=== PATIENT | male | born 1955 | race Caucasian/White ===

== ENCOUNTER → 2017-11-23 09:55 | Outpatient (CLI) | payer SELFPAY ==
[2017-11-23 12:53] LABS: Absolute Lymphocyte Count 1.12 X10^3/ul (0.83-4.51); Absolute Neutrophil Count 2.1 X10^3/uL (2.0-7.7); Basophil# 0.02 X10^3/uL; Basophil% 0.5 % (0-1); Eosinophil# 0.15 X10^3/uL; Eosinophils% 3.9 % (0-5); Hematocrit 46.6 % (40-54); Hemoglobin 15.8 g/dl (13.0-16.5); Lymphocyte # 1.12 X10^3/ul (4.0); Mean Corp Hgb Conc 33.9 g/gl (32-36); Mean Corpuscular Hgb 30.8 pg (27.0-32.0); Mean Corpuscular Volume 90.8 fL (80-94); Mean Platelet Vol. 8.9 fl (6.2-12.0); Monocyte# 0.45 X10^3/uL; Monocyte% 11.7 % (0-10); Neutrophil # 2.11 X10^3/uL (2.7-7.7); Neutrophil % 54.6 % (47-70); Platelet Count 146 K/mm3 (150-450); RBC Distribution Width CV 13.8 % (11.6-14.6); Red Blood Count 5.13 M/mm3 (4.6-6.2); White Blood Count 3.9 K/mm3 (4.4-11.0)
[2017-11-23 12:59] LABS: POSITIVE COUNT NO; POSITIVE DIFFERENTIAL NO; POSITIVE MORPHOLOGY NO
[2017-11-23 13:23] LABS: AST(SGOT) 25 U/L (15-37); Alanine Aminotransfer ALT/SGPT 30 U/L (16-61); Albumin, Serum 4.1 g/dL (3.2-5.0); Alkaline Phosphatase 61 U/L (45-117); Anion Gap 7 (5-15); BUN 12 mg/dL (7-18); BUN/Creat Ratio 13.2 RATIO (10-20); Calcium,Total 9.9 mg/dL (8.5-10.1); Chloride 104 mmol/L (98-107); Creatinine, Serum 0.91 mg/dL (0.70-1.30); EST Glomerular Filtration Rate 89 mL/min (>60); Est Glom Filt Rate - Afr Amer 108 mL/min (>60); Glucose 101 mg/dL (74-106); Potassium 4.4 mmol/L (3.5-5.1); Protein, Total 8.1 g/dL (6.4-8.2); Sodium Level 137 mmol/L (136-145); Thyroid Stim Hormone (TSH) 1.33 uIU/mL (0.358-3.74)
== END ==
PROVIDERS: Family Provider Family Medicine Geriatric Medicine; PCP Family Medicine Geriatric Medicine; Visit Provider Family Medicine Geriatric Medicine
DX: R53.83 Other fatigue (principal)
CPT/HCPCS: 36415; 80053; 84443; 85025

== ENCOUNTER → 2018-06-19 14:02 | Outpatient (CLI) | payer OTHER, SELFPAY ==
--- NOTE | 2018-06-19 15:35 | RAD_ITS ---
STUDY: X-RAY CHEST REASON FOR EXAM: Male, 63 years old. Shortness of of breath TECHNIQUE: PA and lateral views of the chest. COMPARISON: Over 2013 FINDINGS: There are scattered emphysematous blebs. There is no demonstrated pleural abnormality. Normal size heart. There is bulbous enlargement of the left hilum which on view is masslike in the lingula, possibly measuring up to 5.1 x 3.1 cm... Normal visualized pulmonary arteries. Normal visualized aortic arch and descending thoracic aorta. There are diffuse degenerative changes of the visualized thoracic spine. Normal visualized ribs, clavicles, and shoulders. There is no demonstrated abnormality of the visualized soft tissue structures of the upper abdomen. RAD/Chest PA and Lateral IMPRESSION: Left perihilar mass that may measure up to 5.1 x 3.1 cm projected over the left hilum. Suspicious for neoplasm versus infiltrate. Recommend follow up CT scan of the chest. Pulmonary emphysema. N.B. : The above information has been verbally conveyed by Naye Charlton MD to Dr. Ashok Mcnair MD, on 06/19/2018 16:31:48 (ET). Electronically Signed: Naye Charlton MD at 16:18 EST Tel , Service support ,
[2018-06-19 17:02] LABS: Absolute Lymphocyte Count 1.13 X10^3/ul (0.83-4.51); Absolute Neutrophil Count 3.1 X10^3/uL (2.0-7.7); Basophil# 0.03 X10^3/uL; Basophil% 0.6 % (0-1); Eosinophils% 2.1 % (0-5); Hemoglobin 15.5 g/dl (13.0-16.5); Lymphocyte # 1.13 X10^3/ul (4.0); Lymphocyte % 23.5 % (19-41); Mean Corp Hgb Conc 33.7 g/gl (32-36); Mean Corpuscular Hgb 30.8 pg (27.0-32.0); Mean Corpuscular Volume 91.5 fL (80-94); Mean Platelet Vol. 9.3 fl (6.2-12.0); Monocyte# 0.42 X10^3/uL; Monocyte% 8.8 % (0-10); Neutrophil # 3.12 X10^3/uL (2.7-7.7); Platelet Count 151 K/mm3 (150-450); RBC Distribution Width CV 14.4 % (11.6-14.6); RBC Distribution Width SD 47.3 fl (35.1-43.9); Red Blood Count 5.03 M/mm3 (4.6-6.2); White Blood Count 4.8 K/mm3 (4.4-11.0)
[2018-06-19 17:08] LABS: POSITIVE COUNT NO; POSITIVE DIFFERENTIAL NO; POSITIVE MORPHOLOGY NO
[2018-06-19 17:09] LABS: AST(SGOT) 29 U/L (15-37); Alanine Aminotransfer ALT/SGPT 36 U/L (16-61); Albumin, Serum 3.8 g/dL (3.2-5.0); Alkaline Phosphatase 64 U/L (45-117); Anion Gap 11 (5-15); BUN 13 mg/dL (7-18); BUN/Creat Ratio 16.8 RATIO (10-20); Calcium,Total 9.5 mg/dL (8.5-10.1); Chloride 106 mmol/L (98-107); Creatinine, Serum 0.77 mg/dL (0.70-1.30); EST Glomerular Filtration Rate 107 mL/min (>60); Est Glom Filt Rate - Afr Amer 130 mL/min (>60); Globulin 3.7 g/dL (2.2-4.2); Glucose 116 mg/dL (74-106); Potassium 4.2 mmol/L (3.5-5.1); Protein, Total 7.5 g/dL (6.4-8.2); Sodium Level 142 mmol/L (136-145); Thyroid Stim Hormone (TSH) 1.37 uIU/mL (0.358-3.74)
[2018-06-21 07:43] LABS: Hep C Antibodies <0.1 s/co ratio (0.0-0.9)
--- OUTSIDE RECORDS SUMMARY | 2018-08-05 19:05 | XMS RPT_ITS ---
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 years old. Abnormal chest x-ray, lung nodule. RADIATION DOSAGE (If Supplied By Facility): CTDIvol = ( 14.91 ) mGy, DLP = ( 588.77 ) mGycm TECHNIQUE: Transaxial imaging was performed following intravenous administration of 100 ml of Isovue 300 contrast material. Individualized dose optimization techniques were used for this CT. COMPARISON: Low-dose screening chest CT March 21, 2015; PA and lateral chest x-ray June 19, 2018. FINDINGS: Centrilobular emphysematous changes and subpleural blebs again predominate in the upper lung zones. There is subsegmental atelectasis in the posterior left costophrenic sulcus, as well as in the anteromedial left upper lobe abutting the anterior left hilar mass described below. 5 mm calcified granuloma seen in the posterolateral inferior right lower lobe There is no demonstrated pleural abnormality. Normal heart and pericardium. There are calcifications of the coronary arteries. Lobulated 5.35 x 4.9 x 4.3 cm soft tissue mass consistent with malignancy and possible adjacent/inseparable adenopathy extends from the anterior left hilum to the aorticopulmonary window. There is mediastinal and subcarinal adenopathy. A mass of confluent nodes in the lower right paratracheal soft tissues measure 4.9 x 3.0 x 3.3 cm. Subcarinal mass/adenopathy measures 6.4 x 5.4 x 3.2 cm. There are enlarged left hilar lymph nodes as well. Normal enhanced pulmonary arteries. There is atherosclerotic calcification of the aortic arch and takeoff of the left subclavian artery. There are multi-level hypertrophic bridging or near bridging spondylotic degenerative changes of the thoracic spine. Degenerative arthrosis with periarticular ossifications also seen at the sternomanubrial articulation. There is 1 cm rounded fullness of the central left adrenal gland, difficult to further characterize. CT/Chest WITH Contrast IMPRESSION: 1. Lobulated 5.35 cm soft tissue mass consistent with malignancy with possible inseparable adjacent adenopathy extends from the anterior left hilum to the aorticopulmonary window. There is additional mediastinal/subcarinal and left hilar adenopathy. 2. 1 cm rounded fullness of the central left adrenal gland. This is difficult to further characterize, and one might consider PET/CT for more complete evaluation of possible metastatic disease. 3. Centrilobular emphysematous changes and subpleural blebs predominate in the upper lung zones, unchanged. There is minor left base subsegmental atelectasis. Stable calcified granuloma in the posterolateral right lung base. 4. Atherosclerotic calcifications of the coronary arteries and thoracic aortic arch. Electronically Signed: Moses Marcano MD at 15:31 EST , Service support , CC: Eliana Schneider MD Code Number Stamper: Signed SR-CHEST WITH Observed: 06/25/2018 Status: F Source: [place] CONTRAST IMPORT 12:00 AM [facility] REPOSITORY Images were obtained outside of [facility] [id number] CHEST PA AND LATERAL Observed: 06/19/2018 Status: F Source: [place] 3:35 PM [facility] REPOSITORY [facility] Imaging Services [address] [place] [address] Chest PA and Lateral MR#: [id number] Acct: [id number] Name: DARRION CLINE Rep #: [id number] : 1955 M 63 From: Naye Charlton MD PCP: Eliana Schneider MD, Chi Status: REG CLI Study: Chest PA and Lateral Date of Exam: 06/19/18 Exam# [id number] Ordering Dr: Eliana Schneider MD ADDENDUM by Naye Charlton M.D. on 06/19/18 at 1632 ADDENDUM This is an addendum to correct a voice recognition error: The comparison study is April 25, 2014. Electronically Signed: Naye Charlton MD at 16:32 EST Tel , Service support , N.B. : The above information has been verbally conveyed by Naye Charlton MD to Dr. Ashok Schneider MD, on 06/19/2018 16:31:48 (ET). 06/19/18 1632 Date cc: Eliana Schneider MD * Signed ADDENDUM by Naye Charlton M.D. on 06/19/18 at 1632 RAD/Chest PA and Lateral 06/19/18 1639 Date cc: Eliana Schneider MD * Signed STUDY: X-RAY CHEST REASON FOR EXAM: Male, 63 years old. Shortness of of breath TECHNIQUE: PA and lateral views of the chest. COMPARISON: Over 2013 FINDINGS: There are scattered emphysematous blebs. There is no demonstrated pleural abnormality. Normal size heart. There is bulbous enlargement of the left hilum which on view is masslike in the lingula, possibly measuring up to 5.1 x 3.1 cm... Normal visualized pulmonary arteries. Normal visualized aortic arch and descending thoracic aorta. There are diffuse degenerative changes of the visualized thoracic spine. Normal visualized ribs, clavicles, and shoulders. There is no demonstrated abnormality of the visualized soft tissue structures of the upper abdomen. RAD/Chest PA and Lateral IMPRESSION: Left perihilar mass that may measure up to 5.1 x 3.1 cm projected over the left hilum. Suspicious for neoplasm versus infiltrate. Recommend follow up CT scan of the chest. Pulmonary emphysema. N.B. : The above information has been verbally conveyed by Naye Charlton MD to Dr. Ashok Schneider MD, on 06/19/2018 16:31:48 (ET). Electronically Signed: Naye Charlton MD at 16:18 EST Tel , Service support , CC: Eliana Schneider MD Code Number Stamper: Signed COMPREHENSIVE METABOLIC Collected: 06/19/2018 Status: F Source: [place] PROFIL 2:07 PM [facility] REPOSITORY TYPE CODE TESTS RESULT OUT OF RANGE REFERENCE UNITS LAB L501.0100 74-106 mg/dL High GLU 116 Result Comment: Fasting Glucose result from 100 to 125 mg/dL suggests IMPAIRED HOMEOSTASIS per A.D.A. criteria. Please note revised GLUCOSE reference range effective 2017. LAB L501.1000 7-18 mg/dL Normal BUN 13 LAB L501.1100 0.70-1.30 mg/dL Normal CREAT,SERUM 0.77 Result Comment: The validity of the calculated GFR AND GFRAA in patients over 70 years has not been determined. Clinical correlation is essential. LAB L501.1110 >60 mL/min Normal EST GFR 107 Result Comment: Non- GFR Calc LAB L501.1115 >60 mL/min Normal EST GFR - AA 130 Result Comment: GFR Calc LAB L501.1300 10-20 RATIO Normal BUN/CRE 16.8 LAB L501.1500 6.4-8.2 g/dL T Normal PROT 7.5 LAB L501.1800 3.2-5.0 g/dL Normal ALB 3.8 LAB L501.1950 2.2-4.2 g/dL Normal GLOB 3.7 LAB L501.2000 0.9-2.4 RATIO Normal A/G 1.0 LAB L501.2200 8.5-10.1 mg/dL CA Normal 9.5 LAB L501.4100 15-37 U/L Normal AST 29 LAB L501.4305 45-117 U/L Normal ALK P 64 LAB L501.4405 16-61 U/L Normal ALT 36 LAB L501.4600 0.20-1.00 mg/dL T Normal BILI 0.80 LAB L501.5300 136-145 mmol/L NA Normal 142 LAB L501.5600 3.5-5.1 mmol/L K Normal 4.2 LAB L501.5900 98-107 mmol/L CL Normal 106 LAB L501.6100 21.0-32.0 mmol/L Normal CO2 25.0 LAB L501.6200 5-15 Normal GAP 11 Performed By: #### L500.4050, L501.9520, L501.9910 #### [facility] [address] [place], [address] THYROID STIM HORMONE Collected: 06/19/2018 Status: F Source: [place] (TSH) 2:07 PM [facility] REPOSITORY TYPE CODE TESTS RESULT OUT OF RANGE REFERENCE UNITS LAB L501.9520 0.358-3.74 uIU/mL Normal TSH 1.37 Performed By: #### L500.4050, L501.9520, L501.9910 #### [facility] [address] [place], [address] PSA,TOTAL - ANNUAL Collected: 06/19/2018 Status: F Source: [place] SCREEN 2:07 PM [facility] REPOSITORY TYPE CODE TESTS RESULT OUT OF RANGE REFERENCE UNITS LAB L501.9910 0.00-4.00 ng/mL Normal PSA,TOT 0.40 SCREEN Result Comment: This test was performed using the TPSA assay method for the [employer] chemistry system. Values obtained with different assay methods cannot be used interchangably. When changing PSA assays in the course of monitoring a patient, additional sequential testing should be carried out to confirm baseline values. Performed By: #### L500.4050, L501.9520, L501.9910 #### [facility] [address] [place], [address] CBC W/DIFF, AUTOMATED Collected: 06/19/2018 Status: F Source: [place] 2:07 PM [facility] REPOSITORY TYPE CODE TESTS RESULT OUT OF RANGE REFERENCE UNITS LAB L100.1000 4.4-11.0 K/mm3 Normal WBC 4.8 LAB L100.1200 4.6-6.2 M/mm3 Normal RBC 5.03 LAB L100.1300 13.0-16.5 g/dl Normal HGB 15.5 LAB L100.1400 40-54 % Normal HCT 46.0 LAB L100.1500 80-94 fL Normal MCV 91.5 LAB L100.1600 27.0-32.0 pg Normal MCH 30.8 LAB L100.1700 32-36 g/gl Normal MCHC 33.7 LAB L100.1810 11.6-14.6 % Normal RDW CV 14.4 LAB L100.1820 35.1-43.9 fl High RDW SD 47.3 LAB L100.1900 150-450 K/mm3 Normal PLT 151 LAB L100.2000 6.2-12.0 fl Normal MPV 9.3 LAB L100.2100 47-70 % Normal NEUT% 65.0 LAB L100.2200 19-41 % Normal LY% 23.5 LAB L100.2300 0-10 % Normal MONO% 8.8 LAB L100.2400 0-5 % Normal EO% 2.1 LAB L100.2500 0-1 % Normal BASO% 0.6 LAB L100.2550 0.0-0.9 % Normal IM GRAN % 0.000 Result Comment: IG% - Immature Granulocytes (promyelocytes, myelocytes and metamyelocytes) > 1% indicates that a LEFT SHIFT is Present. LAB L100.2620 2.0-7.7 X10 3/uL Normal Absolute Neut 3.1 LAB L100.2720 0.83-4.51 X10 3/ul Normal Absolute Lymph 1.13 Performed By: #### L100.0100 #### [facility] [address] [place], [place], [address] HEPATITIS C ANTIBODIES Collected: 06/19/2018 Status: F Source: [place] 2:07 PM [facility] REPOSITORY TYPE CODE TESTS RESULT OUT OF RANGE REFERENCE UNITS LAB L3100.0650 0.0-0.9 s/co ratio Normal HEP C AB <0.1 Result Comment: Negative: < 0.8 Indeterminate: 0.8 - 0.9 Positive: > 0.9 The CDC recommends that a positive HCV antibody result be followed up with a HCV Nucleic Acid Amplification test (937103). Performed at: - [facility] [address], [place], [place] [id number] Braiding Operator: Adilson Osborne PhD, Phone: [phone] Performed By: #### [id number] #### [facility] (refer to report for specific site) refer to report for address and phone number CBC W/DIFF, AUTOMATED Collected: 11/23/2017 Status: F Source: [place] 11:02 AM [facility] REPOSITORY TYPE CODE TESTS RESULT OUT OF RANGE REFERENCE UNITS LAB L100.1000 4.4-11.0 K/mm3 Low WBC 3.9 LAB L100.1200 4.6-6.2 M/mm3 Normal RBC 5.13 LAB L100.1300 13.0-16.5 g/dl Normal HGB 15.8 LAB L100.1400 40-54 % Normal HCT 46.6 LAB L100.1500 80-94 fL Normal MCV 90.8 LAB L100.1600 27.0-32.0 pg Normal MCH 30.8 LAB L100.1700 32-36 g/gl Normal MCHC 33.9 LAB L100.1810 11.6-14.6 % Normal RDW CV 13.8 LAB L100.1820 35.1-43.9 fl High RDW SD 46.0 LAB L100.1900 150-450 K/mm3 Low PLT 146 LAB L100.2000 6.2-12.0 fl Normal MPV 8.9 LAB L100.2100 47-70 % Normal NEUT% 54.6 LAB L100.2200 19-41 % Normal LY% 29.0 LAB L100.2300 0-10 % High MONO% 11.7 LAB L100.2400 0-5 % Normal EO% 3.9 LAB L100.2500 0-1 % Normal BASO% 0.5 LAB L100.2550 0.0-0.9 % Normal IM GRAN % 0.300 Result Comment: IG% - Immature Granulocytes (promyelocytes, myelocytes and metamyelocytes) > 1% indicates that a LEFT SHIFT is Present. LAB L100.2620 2.0-7.7 X10 3/uL Normal Absolute Neut 2.1 LAB L100.2720 0.83-4.51 X10 3/ul Normal Absolute Lymph 1.12 Performed By: #### L100.0100 #### [facility] [address] [place], [place], [address] COMPREHENSIVE METABOLIC Collected: 11/23/2017 Status: F Source: [place] 11:02 AM [facility] REPOSITORY TYPE CODE TESTS RESULT OUT OF RANGE REFERENCE UNITS LAB L501.0100 74-106 mg/dL Normal GLU 101 Result Comment: Fasting Glucose result from 100 to 125 mg/dL suggests IMPAIRED HOMEOSTASIS per A.D.A. criteria. Please note revised GLUCOSE reference range effective 2017. LAB L501.1000 7-18 mg/dL Normal BUN 12 LAB L501.1100 0.70-1.30 mg/dL Normal CREAT,SERUM 0.91 Result Comment: The validity of the calculated GFR AND GFRAA in patients over 70 years has not been determined. Clinical correlation is essential. LAB L501.1110 >60 mL/min Normal EST GFR 89 Result Comment: Non- GFR Calc LAB L501.1115 >60 mL/min Normal EST GFR - AA 108 Result Comment: GFR Calc LAB L501.1300 10-20 RATIO Normal BUN/CRE 13.2 LAB L501.1500 6.4-8.2 g/dL T Normal PROT 8.1 LAB L501.1800 3.2-5.0 g/dL Normal ALB 4.1 LAB L501.1950 2.2-4.2 g/dL Normal GLOB 4.0 LAB L501.2000 0.9-2.4 RATIO Normal A/G 1.0 LAB L501.2200 8.5-10.1 mg/dL CA Normal 9.9 LAB L501.4100 15-37 U/L Normal AST 25 LAB L501.4305 45-117 U/L Normal ALK P 61 LAB L501.4405 16-61 U/L Normal ALT 30 LAB L501.4600 0.20-1.00 mg/dL T Normal BILI 0.90 LAB L501.5300 136-145 mmol/L NA Normal 137 LAB L501.5600 3.5-5.1 mmol/L K Normal 4.4 LAB L501.5900 98-107 mmol/L CL Normal 104 LAB L501.6100 21.0-32.0 mmol/L Normal CO2 26.0 LAB L501.6200 5-15 Normal GAP 7 Performed By: #### L500.4050, L501.9520 #### [facility] [address] [place], [address] THYROID STIM HORMONE Collected: 11/23/2017 Status: F Source: [place] (TSH) 11:02 AM [facility] REPOSITORY TYPE CODE TESTS RESULT OUT OF RANGE REFERENCE UNITS LAB L501.9520 0.358-3.74 uIU/mL Normal TSH 1.33 Performed By: #### L500.4050, L501.9520 #### [facility] [address] [place], [address] ALLERGIES ALLERGIES DATE TYPE / CODE NAME / CODE REACTION SEVERITY SOURCE Drug NO KNOWN [facility] Class/16790 ALLERGIES Main [place] 1003(SNOMED Repository CT) ENCOUNTERS ENCOUNTERS ADMIT/DISCHARGE ACCOUNT ADMITTING ENCOUNTER LOCATION SOURCE NUMBER CLASS 07/31/2018/07/31/[id number] Repository 07/27/2018 [id number] [facility] 07/27/2018/07/30/[id number] Repository 07/27/2018/07/27/19 [id number] [facility], [address] Repository 07/27/2018/07/27/19 [id number] [facility], [address] Repository 07/19/2018/07/19/[id number] Repository 07/19/2018/07/19/[id number] Repository 07/09/2018/07/13/19 [id number] Ambulatory [address] Repository 06/28/2018/07/04/[id number] Repository 06/25/2018 [id number] [facility] ing:CT Repository 06/19/2018 [id number] [facility] ing:RAD Repository 11/23/2017 [id number] [facility] ing:POLAB3 Repository PAYERS PAYERS ENCOUNTER GUARANTOR PAYER SUBSCRIBER SOURCE 06/25/2018 DARRION R Primary DARRION R [place] [id number] Insurance:MEDICAL SMETZERDOB: [id number] [address]Wzq: Number: Repository [id number] (HP) Date:0621-14-90TL [place] [id number]: 06/25/2018 Secondary DARRION R [place] Insurance:[facility] PACKAGE SMETZERDOB: [facility] Number: [id number] [id number] Repository Date:2018-06-20 06/25/2018 Tertiary NOT GIVENUNK [place] Insurance:SELF PAY [facility] Number: Effective Repository Date:2018-06-20 06/19/2018 DARRION R Primary DARRION R [place] [id number] Insurance:MEDICAL SMETZERDOB: [facility] [id number] [address]Gmw: Number: Repository [id number] (HP) Date:[place]60[place]26-[place] [phone]: 06/19/2018 Secondary NOT GIVENUNK [place] Insurance:SELF PAY [facility] Number: Effective Repository Date:2018-06-19 11/23/2017 Darrion R Primary NOT GIVENUNK [place] [id number] Insurance:SELF PAY [facility] [id number]: Number: Effective Repository Date:2017-11-23 (HP)
== END ==
LOC: POLAB3 14:05 → RAD 15:33
PROVIDERS: Family Provider Family Medicine Geriatric Medicine; PCP Family Medicine Geriatric Medicine; Referring Provider Family Medicine Geriatric Medicine; Visit Provider Family Medicine Geriatric Medicine
DX: R06.02 Shortness of breath (principal); R53.83 Other fatigue; Z12.5 Encounter for screening for malignant neoplasm of prostate; Z13.89 Encounter for screening for other disorder
CPT/HCPCS: 36415; 71046; 80053; 84153; 84443; 85025; 86803; G0103

== ENCOUNTER → 2018-06-25 14:29 | Outpatient (CLI) | payer OTHER, SELFPAY ==
--- NOTE | 2018-06-25 14:35 | CT_ITS ---
STUDY: CT CHEST/THORAX WITH CONTRAST REASON FOR EXAM: Male, 63 years old. Abnormal chest x-ray, lung nodule. RADIATION DOSAGE (If Supplied By Facility): CTDIvol = ( 14.91 ) mGy, DLP = ( 588.77 ) mGycm TECHNIQUE: Transaxial imaging was performed following intravenous administration of 100 ml of Isovue 300 contrast material. Individualized dose optimization techniques were used for this CT. COMPARISON: Low-dose screening chest CT March 21, 2015; PA and lateral chest x-ray June 19, 2018. FINDINGS: Centrilobular emphysematous changes and subpleural blebs again predominate in the upper lung zones. There is subsegmental atelectasis in the posterior left costophrenic sulcus, as well as in the anteromedial left upper lobe abutting the anterior left hilar mass described below. 5 mm calcified granuloma seen in the posterolateral inferior right lower lobe There is no demonstrated pleural abnormality. Normal heart and pericardium. There are calcifications of the coronary arteries. Lobulated 5.35 x 4.9 x 4.3 cm soft tissue mass consistent with malignancy and possible adjacent/inseparable adenopathy extends from the anterior left hilum to the aorticopulmonary window. There is mediastinal and subcarinal adenopathy. A mass of confluent nodes in the lower right paratracheal soft tissues measure 4.9 x 3.0 x 3.3 cm. Subcarinal mass/adenopathy measures 6.4 x 5.4 x 3.2 cm. There are enlarged left hilar lymph nodes as well. Normal enhanced pulmonary arteries. There is atherosclerotic calcification of the aortic arch and takeoff of the left subclavian artery. There are multi-level hypertrophic bridging or near bridging spondylotic degenerative changes of the thoracic spine. Degenerative arthrosis with periarticular ossifications also seen at the sternomanubrial articulation. There is 1 cm rounded fullness of the central left adrenal gland, difficult to further characterize. CT/Chest WITH Contrast IMPRESSION: 1. Lobulated 5.35 cm soft tissue mass consistent with malignancy with possible inseparable adjacent adenopathy extends from the anterior left hilum to the aorticopulmonary window. There is additional mediastinal/subcarinal and left hilar adenopathy. 2. 1 cm rounded fullness of the central left adrenal gland. This is difficult to further characterize, and one might consider PET/CT for more complete evaluation of possible metastatic disease. 3. Centrilobular emphysematous changes and subpleural blebs predominate in the upper lung zones, unchanged. There is minor left base subsegmental atelectasis. Stable calcified granuloma in the posterolateral right lung base. 4. Atherosclerotic calcifications of the coronary arteries and thoracic aortic arch. Electronically Signed: Moses Marcano MD at 15:31 EST , Service support ,
--- OUTSIDE RECORDS SUMMARY | 2018-09-27 07:04 | XMS RPT_ITS ---
:1955 Author Organization OHIP Care Team Providers Name Role Phone ALVIN PAYAN Attending Unavailable WYATT, ELIANA CHI Referring Unavailable MASCIALVIN Referring Unavailable MASCIALVIN Referring Unavailable MASCIALVIN Referring Unavailable MAZZONE, AMERICA Admitting Unavailable MAZZONE, AMERICA Attending Unavailable DOUG BELTRAN (PA-C) Referring Unavailable MAZZONE, AMERICA Admitting Unavailable MAZZONE, AMERICA Attending Unavailable MAZZONE, AMERICA Referring Unavailable MAZZONE, AMERICA Attending Unavailable WYATT, ELIANA CHI Referring Unavailable MAZZONE, AMERICA Admitting Unavailable MAZZONE, AMERICA Attending Unavailable MASCIALVIN Attending Unavailable MASCIALVIN Referring Unavailable Wyatt, Eliana [...] Active Other diseases of AMERICA VORA Active [facility] bronchus, not [place] elsewhere Repository classified / J98.09(ICD-10) 07/27/2018 Active Localized enlarged AMERICA VORA Active [facility] lymph nodes / [place] R59.0(ICD-10) Repository 07/19/2018 Active Other nonspecific NA Active [facility] abnormal finding [place] of lung field / Repository R91.8(ICD-10) 07/19/2018 Active Unknown / NA Active [facility] UNK(Unknown) [place] Repository 07/09/2018 Active Malignant neoplasm NA Active [facility] of unspecified [place] part of Repository unspecified bronchus or lung / C34.90(ICD-10) PROCEDURES PROCEDURES No Procedure Records FoundRESULTS RESULTS PROGRESS Observed: 07/31/2018 Status: COMPLETED Source: [place] 2:48 PM [facility] REPOSITORY HNO ID: [id number] Author: Alvin Payan Service: (none) Author Type: Physician Type: Progress Notes Filed: 07/31/2018 4:52 PM Note Text: Diagnosis: 1) Metastatic NSCLC. HPI: The patient is a 63-year-old male was a past medical history significant for hypertension. He quit smoking 8 years ago. He was in [place] when he began experiencing increasing dyspnea on exertion. He saw Dr. Schneider on his return from [place]. A chest x-ray was obtained on 06/19/2018. [...] No jaundice or rash. No petechiae. NEUROLOGIC: winder helper II-XII are grossly intact. No focal motor [...] DO CNOVSP Observed: 07/31/2018 Status: COMPLETED Source: [place] 2:30 PM [facility] REPOSITORY Visit (SP) Office ([place]) BRADDARRION CALERO ([id number]) 1955 M Date Time Provider Department 07/31/18 [...] smoking 8 years ago. He was in [place] when he began experiencing increasing dyspnea on exertion. He saw Dr. Schneider on his return from [place]. A chest x-ray was obtained on 06/19/2018. [...] No jaundice or rash. No petechiae. NEUROLOGIC: winder helper II-XII are grossly intact. No focal motor [...] Alvin Payan DO Referring Provider: ALVIN PAYAN [[id number]] Allergies As of Date: 07/31/2018 (No Known [...] ANES POST Observed: 07/27/2018 Status: COMPLETED Source: [place] 12:15 PM [facility] REPOSITORY HNO ID: [id number] Author: Yue Carias Service: Anesthesiology Author Type: [...] 27, 2018 TIME: 12:15 PM PAGER/CONTACT #: [phone] CYTOLOGY Observed: 07/27/2018 Status: F Source: [place] 10:57 AM [facility] MAIN [place] REPOSITORY Specimen originated from [facility] Specimen #: [id number] Submitting Physician: AMERICA VORA [...] discrete evaluation episode. Intra-procedural assessment performed at [facility], [facility] [place] [address] GROSS DESCRIPTION A: 30cc hazy light pink CytoLyt with particles and 4 smears (2 Diff Quik and 2 pap stained) B: 30cc cloudy pink CytoLyt with material and 2 smears (1 Diff Quik and 1 pap stained) STAINS A: BRONCHIAL,#22 EBUS,TBNA,4R FINE NEEDLE ASPIRATE (THINPREP, SMEARS AND CELL BLOCK) SMEARS RECEIVED x 4, THIN PREP Non-Crane Follower, CELL BLOCK, H&E, Initial B: BRONCHIAL,#22 EBUS,TBNA,STATION 7 FINE NEEDLE ASPIRATE (THINPREP, SMEARS AND CELL BLOCK) SMEARS RECEIVED x 2, THIN PREP Non-Crane Follower, CELL BLOCK, H&E, Initial Date of Report: 07/30/2018 Date of Procedure: 07/27/2018 Date of Receipt: 07/27/2018 Submitted by: AMERICA VORA M.D. ([id number]) Additional Physician(s): ALVIN PAYAN M.D. ([id number]) Location: PULMONARY MAIN Diagnostic interpretation performed at [facility], [address] [place] [address], [place] [address]. CYTOLOGY Observed: 07/27/2018 Status: F Source: [place] 10:57 AM [facility] REPOSITORY Specimen originated from [facility] Specimen #: [id number] Submitting Physician: AMERICA VORA [...] discrete evaluation episode. Intra-procedural assessment performed at [facility], [address] [place] [address]. [place] [address] GROSS DESCRIPTION A: 30cc hazy light pink CytoLyt with particles and 4 smears (2 Diff Quik and 2 pap stained) B: 30cc cloudy pink CytoLyt with material and 2 smears (1 Diff Quik and 1 pap stained) STAINS A: BRONCHIAL,#22 EBUS,TBNA,4R FINE NEEDLE ASPIRATE (THINPREP, SMEARS AND CELL BLOCK) SMEARS RECEIVED x 4, THIN PREP Non-Crane Follower, CELL BLOCK, H&E, Initial B: BRONCHIAL,#22 EBUS,TBNA,STATION 7 FINE NEEDLE ASPIRATE (THINPREP, SMEARS AND CELL BLOCK) SMEARS RECEIVED x 2, THIN PREP Non-Crane Follower, CELL BLOCK, H&E, Initial Date of Report: 07/30/2018 Date of Procedure: 07/27/2018 Date of Receipt: 07/27/2018 Submitted by: AMERICA VORA M.D. (A90) Additional Physician(s): ALVIN PAYAN M.D. ([id number]) Location: PULMONARY MAIN Diagnostic interpretation performed at [facility], [address] [place] [address], [place] [address]. SURGICAL PATHOLOGY Observed: 07/27/2018 Status: C Source: [place] 10:57 AM [facility] REPOSITORY ADDITIONAL PROCEDURES PRESENT Specimen originated from [facility] Specimen #: [id number] Submitting Physician: AMERICA VORA M.D. (A90) FINAL DIAGNOSIS #7 lymph node, core biopsy - Squamous cell carcinoma. CFF/db 07/31/2018 Elina Boone M.D. (Electronic Signature) SPECIMEN SUBMITTED A: 7 LYMPH NODE ADDITIONAL PROCEDURE(S) PD-L1 BY IMMUNOHISTOCHEMISTRY Date Ordered: 08/01/2018 Date Reported: 08/01/2018 Procedure Results and Interpretation PD-L1 Clone: 22C3 Tissue: Lymph node Block number: A1 Tumor Cells Positive: 1-2% expression Comment: N/A CFF/plfrancisco 08/01/2018 Laboratory Developed Test (LDT) Disclaimer: Positive and negative controls stain appropriately. Performance characteristics of immunohistochemical, immunofluorescent and chromogenic in-situ hybridization tests have been determined by [facility]'s [facility] [place] ([facility]) in a manner consistent with CLIA requirements. One or more of these tests have not been cleared or approved by the FDA. [facility] is regulated under CLIA as qualified to perform high-complexity testing. These tests are used for clinical purposes. They should not be regarded as investigational or for research. CLINICAL DATA ADENOPATHY CORE BX 7 PDL1 GROSS DESCRIPTION A. Received in formalin are multiple segments of cylindrical tissue aggregating to 2.7 x 1.0 x 0.1 cm, brown and of a soft and friable consistency. Totally submitted in formalin in one cassette. Gross examination performed at [facility], [address] [place] [address] 07/27/2018 9:29:51 PM Date of Report: 08/01/2018 Date of Procedure: 07/27/2018 Date of Receipt: 07/27/2018 Submitted by: AMERICA VORA M.D. (A90) Location: PULMONARY MAIN Diagnostic interpretation performed at [place] [address]. PROGRESS Observed: 07/27/2018 Status: COMPLETED Source: [place] 8:40 AM [facility] REPOSITORY HNO ID: [id number] Author: America Vora Service: (none) Author Type: [...] ?ms QTC Calculation(Bezet) : 474 ?ms P [place] : 67 ?degrees R [place] : -66 ?degrees T [place] : 3 ?degrees ? Test Reason : [...] Vora MD Date: 07/27/2018 Time: 10:06 AM CNALEXANDRO Observed: 07/27/2018 Status: COMPLETED Source: [place] 8:30 AM [facility] REPOSITORY Office Visit (PUBRON) DARRION CLINE ([id number]) 1955 M Date Time Provider Department 07/27/18 [...] ?ms QTC Calculation(Bezet) : 474 ?ms P [place] : 67 ?degrees R [place] : -66 ?degrees T [place] : 3 ?degrees ? Test Reason : [...] former smoker seen in consult from Dr. aPyan for EBUS guided diagnosis/staging of the mediastinum. [...] 10:06 AM Referring Provider: ELIANA SCHNEIDER CHI [[id number]] Allergies As of Date: 07/27/2018 (No Known [...] AND DIFFERENTIAL Collected: 07/27/2018 Status: F Source: [place] 7:33 AM [facility] REPOSITORY TYPE CODE TESTS RESULT OUT [...] k/uL Abs Lymph 1.25 LAB AMONO % Cherry% 11.3 LAB AAMONO <0.87 k/uL Abs Cherry 0.51 LAB AEOS % Eosin% 1.3 LAB AAEOS <0.46 k/uL Abs Eosin 0.06 LAB ABASO % Baso% 1.1 LAB AABASO <0.11 k/uL Abs Baso 0.05 LAB AUNRBC 0 /100 WBC NRBCs 0.0 LAB ABNRBC <0.01 k/uL Absolute nRBC <0.01 LAB DTYP DTYPE Auto Diff Performed By: #### CBCDIF, CMP #### [facility] [address] [place], [place] [address] COMP METABOLIC PANEL Collected: 07/27/2018 Status: F Source: [place] 7:33 AM [facility] MAIN CAMPUS REPOSITORY TYPE CODE TESTS RESULT OUT OF REFERENCE UNITS RANGE LAB TP 6.3-8.0 g/dL Protein, Total 7.2 LAB ALB 3.9-4.9 g/dL Albumin 4.5 LAB CA 8.5-10.2 mg/dL Calcium, Total 10.1 LAB TBIL 0.2-1.3 mg/dL Bilirubin, Total 1.0 LAB ALKP 38-113 U/L Alkaline Phosphatase 63 LAB AST 14-40 U/L AST 26 LAB GLU 74-99 mg/dL Glucose High 118 Result Comment: The [place] [employer] (ADA) provides guidance for cutoff [...] Standards of Medical Care in Diabetes 2016, [place] [employer]. Diabetes Care. 2016.39(Suppl 1). LAB [...] GFR. Performed By: #### CBCDIF, CMP #### [facility] [address] [place], [place] [address] ECG COMPLETE W Observed: 07/27/2018 Status: F Source: [place] INTERPRETATION 7:15 AM [facility] REPOSITORY NAME : DARRION CLINE PID : [id number] : 1955 Gender : Male Race : ORD : [id number] Procedure Date : Jul 27 2018 07:15:00 Edit Date : Jul 27 2018 08:11:35 Diagnosis:NORMAL SINUS RHYTHM COMPLETE RIGHT BUNDLE BRANCH BLOCK ABNORMAL ECG Confirmed by JEFFERY DOUGLAS M.D. ([id number]) on 07/27/2018 8:11:29 AM Ventricular Rate : 87 BPM Atrial Rate : 87 BPM P-R Interval : 152 ms QRS Duration : 142 ms Q-T Interval : 394 ms QTC Calculation(Bezet) : 474 ms P [place] : 67 degrees R [place] : -66 degrees T [place] : 3 degrees Test Reason : Location : 314 : J14 J1-4 Overread By : JEFFERY DOUGLAS M.D. Edited By : JEFFERY DOUGLAS M.D. Referred By : DOUG BELTRAN Acquired by : BHARGAV BIRD PT ED Observed: 07/20/2018 Status: COMPLETED Source: [place] 4:03 PM [facility] REPOSITORY HNO ID: [id number] Author: Thania Armenta (Rn) CARLOS Segura Service: [...] PET/CT SKULL-THIGH Observed: 07/19/2018 Status: F Source: [place] INIT 11:28 AM [facility] REPOSITORY * * *Final Report* * * DATE OF EXAM: Jul 19 2018 11:28AM [facility] 0060 - NM PET/CT SKULL-THIGH INIT / [...] * No suspicious FDG avid osseous lesion. Recreation Counselor: PSCB Transcribe Date/Time: Jul 19 2018 1:21P Dictated by : ZACARIAS ADLER MD This examination was interpreted and the report reviewed and electronically signed by: CORBIN SCHULTE MD on Jul 19 2018 4:08PM EST [id number] PROGRESS Observed: 07/19/2018 Status: COMPLETED Source: [place] 10:04 AM [facility] REPOSITORY HNO ID: [id number] Author: Jn Alas [facility] Service: (none) Author Type: (none) Type: Progress [...] 1000 PATIENT DISCHARGED TO: Ambulatory patient, left [place] department area. A Diagnostic radioactive procedure has taken place, with no further precautions necessary other than routine body substance precautions. More information regarding radiation safety can be found using this link: [email or web address] SIGNATURE: Jn Alas [facility] PATIENT NAME: Darrion Cline DATE: July 19, 2018 TIME: 10:04 AM PAGER/CONTACT #: MRI BRAIN WO/W Observed: 07/09/2018 Status: F Source: [place] IVCON 1:44 PM [facility] MAIN [place] REPOSITORY * * *Final Report* * * DATE OF EXAM: Jul 09 2018 1:44PM [facility] 0295 - MRI BRAIN WO/W IVCON / [...] indicate intracranial metastasis. Chronic changes as described. Recreation Counselor: NATHALIE Transcribe Date/Time: Jul 09 2018 2:39P Dictated by : MORIAH CRISTOBAL MD This examination was interpreted and the report reviewed and electronically signed by: MORIAH CRISTOBAL MD on Jul 09 2018 2:43PM EST [id number] PROGRESS Observed: 07/09/2018 Status: COMPLETED Source: [place] 1:30 PM [facility] REPOSITORY HNO ID: [id number] Author: Vani Pappas (Rt) Service: (none) Author Type: Industrial Twisting Machine Operator Type: Progress Notes Filed: 07/09/2018 1:30 PM [...] PM HOSP Observed: 07/01/2018 Status: COMPLETED Source: [place] 12:00 AM [facility] REPOSITORY Patient:Darrion Cline MRN: <[id number]> Height:5' 9(1.753 m) Weight:188 lb (85.276 kg) Outpatient Medications as of 07/27/18: rosuvastatin (CRESTOR) 40 mg tablet Omeprazole Magnesium (PRILOSEC OTC) 20 mg tablet LORazepam (ATIVAN) 1 mg tablet Admission/Clinic Administered Medications as of 07/27/18: NaCl 0.9% iv infusion [facility], left corner of the mouth [...] ?ms QTC Calculation(Bezet) : 474 ?ms P [place] : 67 ?degrees R [place] : -66 ?degrees T [place] : 3 ?degrees ? Test Reason : [...] July 27, 2018, 8:40 AM Progress Notes ([facility]): Alvin Payan, 07/20/2018 8:28 AM Signed Can let him [...] the bones, liver or other internal organs. Alvin Payan, DO Melani Lowery LPN, BETTY 07/20/2018 9:51 AM Signed Message left on voicemail to contact office.for results Melani Lowry JONAH LoweryRayna Interiano PSR 07/20/2018 9:58 AM Signed Patient called back. Relayed message from Dr. Payan. Patient verbalized understanding. Did not have any further questions. PROGRESS Observed: 06/29/2018 Status: COMPLETED Source: [place] 4:39 PM [facility]IN [place] REPOSITORY HNO ID: [id number] Author: Alvin Payan Service: (none) Author Type: [...] smoking 8 years ago. He was in [place] when he began experiencing increasing dyspnea on exertion. He saw Dr. Schneider on his return from [place]. A chest x-ray was obtained on 06/19/2018. [...] brain MRI. Plan: -Referral to bronchoscopy at [facility]. -PET scan and MR brain as soon as able. -Office visit afterwards to review results and developed treatment plan. Alvin Payan DO PROGRESS Observed: 06/29/2018 Status: COMPLETED Source: [place] 10:57 AM [facility] REPOSITORY HNO ID: [id number] Author: Doug Beltran Service: (none) Author Type: Physician Poultry Tender Type: Progress Notes Filed: 06/29/2018 11:04 AM Note Text: Bronchoscopy Request: Please schedule patient for the following: Cleared for scheduling JK 06/29/18. New Consultation Staging EBUS Diagnostic EBUS [...] on anticoagulants/anti-plt therapy? No Nursing Considerations: (ie: snf, TB, respiratory isolation, etc.) None Diagnosis/Reason for [...] CREAT CNOVSP Observed: 06/28/2018 Status: COMPLETED Source: [place] 11:10 AM [facility] REPOSITORY Visit (SP) Office ([place]) DARRION CLINE ([id number]) 1955 M Date Time Provider Department 06/28/18 11:10 AM ALVIN PAYAN During your visit today, we recorded the following information about you: Temperature Pulse Blood pressure Weight 97.8 degrees 90/minute 128/95 85.3 kg Height 1.753 m Alvin Paayn DO 07/02/2018 11:15 AM Signed Consult requested [...] smoking 8 years ago. He was in [place] when he began experiencing increasing dyspnea on exertion. He saw Dr. Schneider on his return from [place]. A chest x-ray was obtained on 06/19/2018. [...] brain MRI. Plan: -Referral to bronchoscopy at [facility]. -PET scan and MR brain as soon as able. -Office visit afterwards to review results and developed treatment plan. Alvin Payan DO Referring Provider: ELIANA SCHNEIDER CHI [[id number]] Allergies As of Date: 06/28/2018 (No Known Allergies) Date Reviewed: 06/28/2018 Reviewed by: Jane Jett - Fully Assessed Reason for Visit: New Patient Evaluation [154] Primary Visit Diagnosis:Lung mass [R91.8] Other Visit Diagnoses:Cancer of trachea, bronchus, and lung (HCC) [C33, C34.80] Lung nodules [R91.8] Order(s):NM PET/CT SKULL-THIGH [[id number]] Order #: [id number] FUTURE LORazepam (ATIVAN) 1 mg tabletTake 1 [...] Jane Jett MA 06/28/2018 11:07 AM >> KAY LOU JANE Cheryle Jun 28, 2018 11:07 AM Duplicate Problem List As Of Date 06/28/2018 Noted Resolved Mohs for BCC, left corner of the mouth 10-02-07 *INVALID FOR* Encounter Status:Closed by ALVIN PAYAN DO on 07/02/18 CHEST WITH CONTRAST Observed: 06/25/2018 Status: F Source: [place] 2:35 PM [facility] REPOSITORY [facility] Imaging Services [address] [place] [address] Chest WITH Contrast MR#: [id number] Acct: [id number] Name: DARRION CLINE Rep #: [id number] : 1955 M 63 From: Leonel Marcano MD PCP: Eliana Schneider MD, Chi Status: REG CLI Study: Chest WITH Contrast Date of Exam: 06/25/18 Exam# [id number] Ordering Dr: Eliana Schneider MD STUDY: CT [...] Service support , CC: Eliana Schneider MD Recreation Counselor: Signed SR-CHEST WITH Observed: 06/25/2018 Status: F Source: [place] CONTRAST [place] 12:00 AM [facility] REPOSITORY Images were obtained outside of [facility] [id number] CHEST PA AND LATERAL Observed: 06/19/2018 Status: F Source: [place] 3:35 PM [facility] REPOSITORY [facility] Imaging Services [address] [place] [address] Chest PA and Lateral MR#: [id number] Acct: [id number] Name: DARRION CLINE Rep #: [id number] : 1955 M 63 From: Naye Charlton MD PCP: Eliana Schneider MD, Chi Status: REG CLI Study: Chest PA and Lateral Date of Exam: 06/19/18 Exam# [id number] Ordering Dr: Eliana Schneider MD ADDENDUM by [...] Schneider MD, on 06/19/2018 16:31:48 (ET). 06/19/18 163 Date cc: Eliana Schneider MD * Signed [...] Service support , CC: Eliana Schneider MD Recreation Counselor: Signed COMPREHENSIVE METABOLIC Collected: 06/19/2018 Status: F Source: [place] 2:07 PM [facility] REPOSITORY TYPE CODE TESTS RESULT OUT OF [...] Performed By: #### L500.4050, L501.9520, L501.9910 #### [facility] [address] [facility] [place], [place], [id number] THYROID STIM HORMONE Collected: 06/19/2018 Status: F Source: [place] ([place]SH) 2:07 PM [facility] REPOSITORY TYPE CODE TESTS RESULT OUT OF RANGE REFERENCE UNITS LAB L501.9520 0.358-3.74 uIU/mL Normal TSH 1.37 Performed By: #### L500.4050, L501.9520, L501.9910 #### [facility] [address] [place], [place], [address] PSA,TOTAL - ANNUAL Collected: 06/19/2018 Status: F Source: [place] SCREEN 2:07 PM [facility] REPOSITORY TYPE CODE TESTS RESULT OUT OF RANGE REFERENCE UNITS LAB L501.9910 0.00-4.00 ng/mL Normal PSA,TOT 0.40 SCREEN Result Comment: This test was performed using the TPSA assay method for the iTwixie chemistry system. Values obtained with different assay methods cannot be used interchangably. When changing PSA assays in the course of monitoring a patient, additional sequential testing should be carried out to confirm baseline values. Performed By: #### L500.4050, L501.9520, L501.9910 #### [facility] [address] [place], [place], [id number] CBC W/DIFF, AUTOMATED Collected: 06/19/2018 Status: F Source: [place] 2:07 PM [facility] REPOSITORY TYPE CODE TESTS RESULT OUT OF [...] Lymph 1.13 Performed By: #### L100.0100 #### [facility] [address] [place], [address] HEPATITIS C ANTIBODIES Collected: 06/19/2018 Status: F Source: [place] 2:07 PM [facility] REPOSITORY TYPE CODE TESTS RESULT OUT OF RANGE REFERENCE UNITS LAB L3100.0650 0.0-0.9 s/co ratio Normal HEP C AB <0.1 Result Comment: Negative: < 0.8 Indeterminate: 0.8 - 0.9 Positive: > 0.9 The CDC recommends that a positive HCV antibody result be followed up with a HCV Nucleic Acid Amplification test (256272). Performed at: [facility] [id number] [place] Spreader: Adilson Osborne PhD, Phone: [phone] Performed By: #### L3100.0625 #### [facility] (refer to report for specific site) refer to report for address and phone number CBC W/DIFF, AUTOMATED Collected: 11/23/2017 Status: F Source: [place] 11:02 AM [facility] REPOSITORY TYPE CODE TESTS RESULT OUT OF [...] Lymph 1.12 Performed By: #### L100.0100 #### [facility] [address] [place], [address] COMPREHENSIVE METABOLIC Collected: 11/23/2017 Status: F Source: [facility] 11:02 AM [facility] REPOSITORY TYPE CODE TESTS RESULT OUT OF [...] 7 Performed By: #### L500.4050, L501.9520 #### [facility] [address] [place], [place], [address] THYROID STIM HORMONE Collected: 11/23/2017 Status: F Source: [place] ([place]SH) 11:02 AM [facility] REPOSITORY TYPE CODE TESTS RESULT OUT OF RANGE REFERENCE UNITS LAB L501.9520 0.358-3.74 uIU/mL Normal TSH 1.33 Performed By: #### L500.4050, L501.9520 #### [facility] [address] [place], [place], [address] ALLERGIES ALLERGIES DATE TYPE / CODE NAME / CODE REACTION SEVERITY SOURCE Drug NO KNOWN [facility] Class/54658 ALLERGIES [facility] 1003(SNOMED Repository CT) ENCOUNTERS ENCOUNTERS ADMIT/DISCHARGE ACCOUNT ADMITTING ENCOUNTER LOCATION SOURCE NUMBER CLASS 07/31/2018/08/01/19 [id number] Ambulatory [address] Repository 07/27/2018 [id number] MARISA, Ambulatory [facility] Repository 07/27/2018/07/30/19 [id number] Ambulatory [address] Repository 07/27/2018/07/27/19 [id number] ANDERZONE, Ambulatory [address] Repository 07/27/2018/07/27/19 [id number] MAZZONE, Ambulatory [place] [facility] Repository 07/19/2018/07/19/19 [id number] Ambulatory [address] Repository 07/19/2018/07/19/19 [id number] Ambulatory [address] Repository 07/09/2018/07/13/19 [id number] Ambulatory [address] Repository 06/28/2018/07/04/20 [id number] Ambulatory [address] Repository 06/25/2018 [id number] [facility] ing:CT Repository 06/19/2018 [id number] [facility] ing:RAD Repository 11/23/2017 [id number] [facility] ing:POLAB3 Repository PAYERS PAYERS ENCOUNTER GUARANTOR PAYER SUBSCRIBER SOURCE 06/25/2018 DARRION R Primary DARRION R [place] [id number] Insurance:MEDICAL SMETZERDOB: [id number] [address]Vxe: Number: Repository [id number] (HP) Date:[id number] [facility] [address] [place] [id number]: 06/25/2018 Secondary DARRION R [place] Insurance:[facility] PACKAGE SMETZERDOB: [facility] Number: [id number] Hospital [id number] Repository Date:2018-06-20 06/25/2018 Tertiary NOT GIVENUNK [place] Insurance:SELF PAY [facility] Number: Effective Repository Date:2018-06-20 06/19/2018 DARRION R Primary DARRION R [place] [id number] Insurance:MEDICAL SMETZERDOB: [facility] [id number] [address]Mht: Number: Repository [id number] (HP) Date:9601-08-[address], [place] [address]GZ: 06/19/2018 Secondary NOT GIVENUNK [place] Insurance:SELF PAY [facility] Number: Effective Repository Date:2018-06-19 11/23/2017 Darrion Lindsey Primary NOT GIVENUNK [place] [id number] Insurance:SELF PAY [facility] [address]Cre: Number: Effective Repository Date:2017-11-23 ()
== END ==
PROVIDERS: Family Provider Family Medicine Geriatric Medicine; PCP Family Medicine Geriatric Medicine; Referring Provider Family Medicine Geriatric Medicine; Visit Provider Family Medicine Geriatric Medicine
DX: R91.1 Solitary pulmonary nodule (principal)
CPT/HCPCS: 71260; Q9967

== ENCOUNTER → 2019-05-06 12:23 | Outpatient (CLI) | payer MEDICARE, BC, SELFPAY ==
[2019-05-06 14:06] LABS: Cholesterol 197 mg/dL (200); High Density Lipoprotein 46 mg/dL; Triglycerides 120 mg/dL; Very Low Density Lipoprotein 24 mg/dL (5-40)
[2019-05-08 12:22] LABS: Copper, Serum or Plasma 103 ug/dL (72-166); Zinc, Plasma or Serum 91 ug/dL (56-134)
== END ==
LOC: LAB.FUTURE 12:24 → LAB 12:30
PROVIDERS: Family Provider Family Medicine Geriatric Medicine; PCP Family Medicine Geriatric Medicine
DX: C34.90 Malignant neoplasm of unspecified part of unspecified bronchus or lung (principal); E78.5 Hyperlipidemia, unspecified
CPT/HCPCS: 36415; 80061; 82525; 84630

== ENCOUNTER 2020-11-09 05:57 | Day surgery (SDC) | payer MEDICARE, BC, SELFPAY ==
--- NOTE | 2020-11-04 13:25 | EKG12_ITS ---
Test Reason : PRE OP Blood Pressure : / mmHG Vent. Rate : 085 BPM Atrial Rate : 085 BPM P-R Int : 154 ms QRS Dur : 132 ms QT Int : 378 ms P-R-T Axes : 078 -71 037 degrees QTc Int : 449 ms Normal sinus rhythm Left axis deviation Right bundle branch block Abnormal ECG Confirmed by BALBINA JENKINS, PHILLY ([id number]), acquisition editor SHERIF CROOKS ([id number]) on 11/05/2020 9:18:18 AM Referred By: Anand Scruggs Confirmed By:PHILLY MORTENSEN MD
[2020-11-09 06:23] VITALS: BP 107/70; PULSE 90; RESP 14; TEMP 37.2; O2SAT 92; BMI 21.6
[2020-11-09] MEDS: Lactated Ringers 1,000 ML 100 ML IV (06:39)
--- NOTE | 2020-11-09 07:35 | PCM.DC ---
Discharge Instructions Outpatient Procedure Reason For Visit: DIRECT LARYNGOSCOPY WITH INJECTION Follow Up Care Test Results: Test results from this visit will be discussed in further detail at your follow-up appointment, if applicable. Discharge Plan Admission Attending Provider: Anand Scruggs Primary Care Provider: Jeffrey London Discharge Orders/Prescriptions Prescriptions: No Action ondansetron HCl 8 MG tablet 8 mg PO Q8H PRN PRN (Reason: Pain 1-10 Or Fever) RF: 0 acetaminophen 500 MG tablet 500 - 1,000 mg PO Q6H PRN PRN (Reason: Pain 1-10 Or Fever) RF: 0 afatinib 20 MG tablet 20 mg PO DAILY RF: 0 albuterol sulfate 1 INHALER inhaler 1 - 2 puff INHALATION Q6H PRN PRN (Reason: COPD) RF: 0 Referrals: Jeffrey London MD [Primary Care Provider] - Disposition Discharge Orders: Discharge Patient (Routine); Ordered 11/09/20 Ordered By: Dr. Anand Scruggs
--- NOTE | 2020-11-09 07:56 | OP.PCM_ITS ---
Report of Operation Date of Procedure: 11/09/20 Pre-Operative Diagnosis: left vocal cord paralysis Post-Operative Diagnosis: same Surgery/Procedure Performed:: Microdirect laryngoscopy with left vocal cord injection Type of Anesthesia: General Anesthesiologist: Ildefonso Tsang Estimated Blood Loss (mL): none Description of Procedure: The patient was taken to the OR on 11/09/20. He was placed in the supine position on the OR table. He was given sufficient general endotracheal anesthesia. The table was turned 90 degrees clockwise. He was draped steriley. A gum guard was placed on the upper dentition. A Dedo laryngoscope was placed and the larynx was exposed. The laryngoscope was then placed in suspension on the Moody stand. The operating microcsope was then broug ht into use. I inspected the larynx. I then identified the vocal process. The needle was inserted anteriorly and medially to the left vocal process. I then injected prolaryn plus (1 cc). This provided excellent medialization of the vocal cord. Excess was suctioned from the field. Hemostasis was ensured. The instrumentation was then removed. The patient was awoken and brought to the recovery room in stable condition. blood loss none. Sponge, needle and instrument count were correct at the end of the procedure.
[2020-11-09 08:04] VITALS: BP 102/68; BP 107/70; PULSE 76; RESP 16; TEMP 36.3; O2SAT 91
[2020-11-09 08:15] VITALS: BP 107/70; BP 98/64; PULSE 76; RESP 16; O2SAT 93
[2020-11-09 08:25] VITALS: BP 107/70; BP 93/64; PULSE 71; RESP 16; TEMP 36.5; O2SAT 93
[2020-11-09 08:54] VITALS: BP 106/70; BP 107/70; PULSE 68; RESP 16; TEMP 36.5; O2SAT 93
== END 2020-11-09 08:58 ==
LOC: SDC 05:57 → AC 05:58
PROVIDERS: PCP Family Medicine; Referring Provider Otolaryngology; Visit Provider Otolaryngology
PROC: 0CJS8ZZ Inspection of Larynx, Via Natural or Artificial Opening Endoscopic (ICD-10-PCS; CPT 31575; principal; 2020-11-09 07:25)
DX: J38.01 Paralysis of vocal cords and larynx, unilateral (principal); R49.0 Dysphonia; K21.9 Gastro-esophageal reflux disease without esophagitis; Z79.52 Long term (current) use of systemic steroids; Z79.899 Other long term (current) drug therapy; Z85.118 Personal history of other malignant neoplasm of bronchus and lung; Z85.828 Personal history of other malignant neoplasm of skin; Z87.891 Personal history of nicotine dependence
CPT/HCPCS: 31571; 93005; J7120; J2405